=== PATIENT | male | born 1960 | race Caucasian/White ===

== ENCOUNTER 2022-11-23 18:30 | Emergency (ER) | payer MEDICARE ==
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
[2022-11-23] MEDS ORDERED: RX-OXYCODONE/APAP 5-325 MG #4 TAB PK PO ONE (19:57)
[2022-11-23] MEDS ORDERED: RX-OXYCODONE/APAP 5-325 MG #4 TAB PK PO PRN (20:00)
[2022-11-23] MEDS ORDERED: oxyCODONE/APAP 5/325MG (PERCOCET 5) TABLET PO ONE (20:00)
[2022-11-23] MEDS ORDERED: KETOROLAC 30 MG/ML VIAL IM ONE (20:00)
[2022-11-23 20:02] VITALS: BP 128/72
== END 2022-11-23 20:02 | disposition home or self-care (01) ==
LOC: ER FS 18:31
DX: S06.0X1A Concussion with loss of consciousness of 30 minutes or less, initial encounter (principal); S00.83XA Contusion of other part of head, initial encounter; M62.830 Muscle spasm of back; Y00.XXXA Assault by blunt object, initial encounter
CPT/HCPCS: 70450; 70486; 72125; 99284